=== PATIENT | male | born 1940 | race Caucasian/White ===

== ENCOUNTER 2022-02-15 21:39 | Inpatient (IN) | payer MEDICARE, OTHER ==
[~2022-02-15] VITALS: Ht 157.5 cm; Wt 59.9 kg
[2022-02-15] MEDS ORDERED: levETIRAcetam IV 500 MG in IV DEXTROSE 5% 100 ML IV ONE (22:00)
[2022-02-15] MEDS ORDERED: LORAZEPAM 2 MG/1 ML VIAL IV ONE (22:00)
[2022-02-15 22:18] LABS: HEMATOCRIT 43.9 % (36.7-47.1); MEAN CORPUSCULAR HEMOGLOBIN 30.4 uug (23.8-33.4); MEAN CORPUSCULAR VOLUME 91.6 fL (73.0-96.2); PLATELET COUNT (AUTO) 239 K/uL (152-348)
--- NOTE | 2022-02-15 22:18 | NUR ---
Patient taken to CT via vanna
[2022-02-15] MEDS ORDERED: levETIRAcetam 500 MG/5 ML VIAL IV ONE (22:21)
[2022-02-15] MEDS ORDERED: LORAZEPAM 2 MG/1 ML VIAL ONE (22:22)
[2022-02-15 22:25] LABS: CARBON DIOXIDE 27 mmol/L (21-32); CHLORIDE 100 mmol/L (98-107); CREATININE 1.1 mg/dL (0.6-1.3); GLUCOSE 150 mg/dL (74-106); POTASSIUM 4.5 mmol/L (3.5-5.1); UREA NITROGEN, BLOOD 16 mg/dL (7-18)
[2022-02-15] MEDS ORDERED: IV NORMAL SALINE 1000 ML BAG IV ONE (22:30)
[2022-02-15 22:31] LABS: ALANINE AMINOTRANSFERASE 11 U/L (16-63); ALKALINE PHOSPHATASE 82 U/L (50-136); ASPARTATE AMINOTRANSFERASE 19 U/L (15-37); BILIRUBIN,DIRECT 0.1 mg/dL (0.0-0.2); BILIRUBIN,TOTAL 0.3 mg/dL (0.2-1.0); TOTAL PROTEIN, SERUM 7.9 g/dL (6.4-8.2)
[2022-02-15 22:38] LABS: ETHANOL < 3 MG/DL (0-0)
--- NOTE | 2022-02-16 00:40 | NUR ---
Called [facility] to page Dr. Doll.
[2022-02-16] MEDS ORDERED: LIDOCAINE 2% (GLYDO= UROJET) 10 ML JELLY MM ONE ×2 (00:45)
[2022-02-16] MEDS ORDERED: LEVE500T20 PO (01:18)
[2022-02-16] MEDS ORDERED: ACET-2154 PO (01:18)
[2022-02-16] MEDS ORDERED: PYRI50CA PO (01:18)
[2022-02-16] MEDS ORDERED: MINE105O TP (01:18)
[2022-02-16] MEDS ORDERED: LORA2TAB95 PO (01:18)
[2022-02-16] MEDS ORDERED: TRAZ-182 PO (01:18)
[2022-02-16] MEDS ORDERED: MV-M1TAB18 PO (01:18)
[2022-02-16] MEDS ORDERED: LORA-259 PO (01:18)
[2022-02-16] MEDS ORDERED: PANT40TA49 PO (01:18)
[2022-02-16] MEDS ORDERED: BACI3.5O23 TOP (01:18)
[2022-02-16] MEDS ORDERED: CALC200T42 PO (01:18)
[2022-02-16] MEDS ORDERED: HYDR453.3 TP ×2 (01:18)
[2022-02-16] MEDS ORDERED: MUPI22OI2 TP (01:18)
[2022-02-16] MEDS ORDERED: MAGN400O6 PO (01:18)
[2022-02-16] MEDS ORDERED: QUET25TA PO (01:18)
[2022-02-16] MEDS ORDERED: DIVA-76 PO (01:18)
[2022-02-16] MEDS ORDERED: [UNRECOGNIZED DRUG - CODE] TP (01:18)
[2022-02-16] MEDS ORDERED: MULT-366 PO (01:18)
[2022-02-16] MEDS ORDERED: DOCU100C36 PO (01:18)
[2022-02-16] MEDS ORDERED: PETR18JE3 TP (01:18)
[2022-02-16] MEDS ORDERED: [UNRECOGNIZED DRUG - CODE] TP (01:18)
[2022-02-16] MEDS ORDERED: FLUO15CR TP (01:18)
[2022-02-16] MEDS ORDERED: BISA10SU61 RC (01:18)
[2022-02-16] MEDS ORDERED: DEXT15DR6 EACHEYE (01:18)
[2022-02-16] MEDS ORDERED: TOLN113C2 TP (01:18)
[2022-02-16] MEDS ORDERED: NYST60PO TP (01:18)
[2022-02-16] MEDS ORDERED: GUAI-717 PO (01:18)
[2022-02-16] MEDS ORDERED: MENT3.5O TP (01:18)
[2022-02-16] MEDS ORDERED: [UNRECOGNIZED DRUG - CODE] TP (01:18)
[2022-02-16] MEDS ORDERED: [UNRECOGNIZED DRUG - CODE] TP (01:18)
[2022-02-16] MEDS ORDERED: DIAZ5TAB4 RC (01:18)
[2022-02-16] MEDS ORDERED: FERR325T28 PO (01:18)
[2022-02-16] MEDS ORDERED: LOPE2CAP PO (01:18)
[2022-02-16] MEDS ORDERED: AMLO-212 PO (01:18)
--- NOTE | 2022-02-16 01:35 | NUR ---
Patient incontinent in brief. Large BM.
--- NOTE | 2022-02-16 02:08 | NUR ---
Patient has been admitted by Oskar Forte for TELE bed.
[2022-02-16] MEDS ORDERED: REMEDY ESSENTIAL ZINC PASTE 113 GM TP PRN (02:15)
[2022-02-16] MEDS ORDERED: ONDANSETRON 4 MG/2 ML VIAL IV PRN (02:15)
[2022-02-16 02:52] LABS: ABG BASE EXCESS -1.1 mmol/L; ABG HCO3 22.3 mmol/L; ABG PCO2 33.3 mmHg (35.0-45.0); ABG PH 7.443 (7.350-7.450); ABG PO2 79.3 mmHg (75.0-100.0); ABG SITE LEFT RADIAL; ABG TOTAL HEMOGLOBIN 13.6 G/dL (13.5-18.0); COHb 0.6 % (0.5-1.5); MetHb 0.1 % (0.0-1.5); O2Hb 95.6 % (94.0-97.0); VENT MODE Nasal Cannula
--- NOTE | 2022-02-16 03:24 | NUR ---
Called third floor for TELE bed. Currently no beds avaliable.
--- NOTE | 2022-02-16 05:55 | NUR ---
Spoke to Joi REED at [facility]. Per BRIANNA, patient's baseline is nonverbal but will yell out when needed a brief change, wheelchair bound, and is on a full liquid/pureed diet.
--- NOTE | 2022-02-16 06:54 | NUR ---
Report given to Joselito HOUSTON
[2022-02-16] MEDS ORDERED: levETIRAcetam 500 MG/5 ML VIAL IV ONE ×2 (09:28→21:44)
[2022-02-16] MEDS: PANTOPRAZOLE SODIUM 40 MG VIAL IV SCH (09:45)
[2022-02-16] MEDS: levETIRAcetam IV 1,000 MG in IV DEXTROSE 5% 100 ML IV SCH ×3 (09:45→22:33)
[2022-02-16] MEDS ORDERED: BISACODYL 10 MG SUPP.RECT RC PRN (10:00)
[2022-02-16] MEDS: IV NS 1000 ML 1,000 ML IV PRN ×2 (11:11→21:01)
[2022-02-16] MEDS ORDERED: LORAZEPAM 2 MG/1 ML VIAL ONE (15:06)
[2022-02-16] MEDS: LORAZEPAM 2 MG/1 ML VIAL IV PRN (15:32)
[2022-02-16 15:38] LABS: *OCCULT BLOOD STOOL POSITIVE (NEGATIVE)
[2022-02-16] MEDS ORDERED: CALCIUM CITRATE 950MG TAB PO SCH ×2 (17:00→20:05)
[2022-02-16] MEDS: DOCUSATE SODIUM 100 MG CAPSULE PO SCH (17:00)
[2022-02-16] MEDS: DIVALPROEX 250 MG TABLET.DR PO SCH (17:00)
[2022-02-16] MEDS: QUETIAPINE FUMARATE 25 MG TABLET PO SCH (17:00)
[2022-02-16] MEDS: TRAZODONE 50 MG TABLET PO SCH (17:27)
--- NOTE | 2022-02-16 17:30 | NUR ---
PT IS SLEEPING , TOO SEDATED AND CAN NOT TAKE PO MEDICATION AT HIS TIME. DR CUEVAS WAS NOTIFIED. CONTINU TO MONITOR THE PT.
--- NOTE | 2022-02-16 19:19 | NUR ---
REPORT GIVEN TO J2EE PROGRAMMER ROSEMARIE WILDER.
--- NOTE | 2022-02-16 19:26 | NUR ---
Report given to Celina HOUSTONconverter operator.
--- NOTE | 2022-02-16 20:10 | NUR ---
PEDRO LUIS MONTANO FROM ER A/A MAKING NOISES, NOT ABLE TO FOLLOW ANY COMMANDS
[2022-02-16 21:09] VITALS: BP 176/86
[2022-02-17 00:30] VITALS: BP 120/59
[2022-02-17 04:12] VITALS: BP 149/58
--- NOTE | 2022-02-17 07:30 | NUR ---
REPORT GIVEN TO ROSEMARIE HOMER
--- NOTE | 2022-02-17 08:00 | NUR ---
Seizure precaution implemented. NPO status implemented. PT nonverbal. Call light is within reach.
[2022-02-17 08:05] LABS: HEMATOCRIT 36.5 % (36.7-47.1); MEAN CORPUSCULAR HEMOGLOBIN 30.7 uug (23.8-33.4); PLATELET COUNT (AUTO) 156 K/uL (152-348)
[2022-02-17 08:17] LABS: CREATININE 0.7 mg/dL (0.6-1.3); MAGNESIUM 2.4 mg/dL (1.8-2.4); PHOSPHOROUS 3.2 mg/dL (2.5-4.9)
[2022-02-17 08:18] LABS: THYROID STIMULATING HORMONE 7.677 mIU/mL (0.358-3.740)
[2022-02-17 08:39] LABS: NEUTROPHILS % (MANUAL) 0 % (42-75)
[2022-02-17] MEDS: levETIRAcetam IV 1,000 MG in IV DEXTROSE 5% 100 ML IV SCH ×2 (10:08→21:56)
[2022-02-17] MEDS: PANTOPRAZOLE SODIUM 40 MG VIAL IV SCH (10:09)
[2022-02-17] MEDS: QUETIAPINE FUMARATE 25 MG TABLET PO SCH ×2 (10:09→17:07)
[2022-02-17] MEDS: DOCUSATE SODIUM 100 MG CAPSULE PO SCH ×2 (10:09→17:06)
[2022-02-17] MEDS: AMLODIPINE 5 MG TABLET PO SCH (10:10)
[2022-02-17] MEDS: DIVALPROEX 250 MG TABLET.DR PO SCH ×2 (10:10→17:06)
[2022-02-17 11:35] VITALS: BP 140/52
[2022-02-17] MEDS: CALCIUM CITRATE 950MG TAB PO SCH ×2 (13:03→21:00)
[2022-02-17] MEDS: TRAZODONE 50 MG TABLET PO SCH (17:07)
[2022-02-17] MEDS: IV NS 1000 ML 1,000 ML IV PRN (17:14)
[2022-02-17 17:54] VITALS: BP 149/67
--- NOTE | 2022-02-17 18:00 | NUR ---
Pt is in no acute distress. Call light is within reach. No seizure noted this shift. EEG DOne
[2022-02-17 20:31] VITALS: BP 120/73
[2022-02-18 04:28] VITALS: BP 141/82
[2022-02-18] MEDS: levETIRAcetam IV 1,000 MG in IV DEXTROSE 5% 100 ML IV SCH ×2 (09:37→22:08)
[2022-02-18] MEDS: DIVALPROEX 250 MG TABLET.DR PO SCH ×2 (10:01→18:23)
[2022-02-18] MEDS: CALCIUM CITRATE 950MG TAB PO SCH ×2 (10:02→18:23)
[2022-02-18] MEDS: AMLODIPINE 5 MG TABLET PO SCH (10:02)
[2022-02-18] MEDS: QUETIAPINE FUMARATE 25 MG TABLET PO SCH ×2 (10:02→18:23)
[2022-02-18] MEDS: DOCUSATE SODIUM 100 MG CAPSULE PO SCH ×2 (10:09→18:23)
[2022-02-18] MEDS: PANTOPRAZOLE SODIUM 40 MG VIAL IV SCH (10:15)
[2022-02-18 11:40] VITALS: BP 145/80
[2022-02-18] MEDS ORDERED: CHOL-35 PO (12:51)
[2022-02-18] MEDS ORDERED: SODI1TAB3 PO (12:51)
--- NOTE | 2022-02-18 14:40 | NUR ---
WOUND CARE CONSULT: RECEIVED CONSULT FOR HIGH RISK. PT NOTED TO HAVE LEFT BELOW KNEE AMPUTATION STUMP AND CONTRACTED RT LOWER EXTREMITY. PT YELLS OUT ALMOST CONSTANTLY. [place] CATH NOTED. RECOMMENDATIONS MADE FOR SKIN PROTECTION. DISCUSSED WITH NURSING STAFF. IN AGREEMENT WITH PLAN OF CARE.
[2022-02-18 14:43] LABS: HEMATOCRIT 36.4 % (36.7-47.1); MEAN CORPUSCULAR VOLUME 90.4 fL (73.0-96.2); PLATELET COUNT (AUTO) 172 K/uL (152-348)
[2022-02-18 16:22] VITALS: BP 132/61
[2022-02-18] MEDS: TRAZODONE 50 MG TABLET PO SCH (18:23)
--- NOTE | 2022-02-18 20:12 | NUR ---
RECEIVED REPORT FROM ROSEMARIE PATTERSON NOC SHIFT. PATIENT IS ALERT AND & ORIENTED X1, APHASIC, AND UNABLE TO COMPREHEND. [place] CATHETER PATENT AND DRAINING. HAD 1 SMEAR BOWEL MOVEMENT. NO SEIZURES DURING THE SHIFT. SEIZURE PRECAUTIONS OBSERVED INCLUDING BUT NOT LIMITED TO SIDE RAILS PADDING. PATIENT PASSED SWALLOW EVALUATION WITH SPEECH THERAPY. PATIENT STARTED ON PUREE DIET. NO SIGNS AND SYMPTOMS OF ASPIRATION. PATIENT TOLERATES DIET AND PO MEDICATIONS WELL. AT 18:30PM, PATIENT'S IV NOTED TO BE INFILTRATED. RN STOPPED IV FLUIDS. NO ACUTE DISTRESSED NOTED. FALL PRECAUTIONS OBSERVED, BED IN LOWEST POSITION AND BED ALARM ACTIVATED. ALL NEEDS MET AT THIS TIME. ENDORSED CARE TO ROSEMARIE RUSSELL, FOR CONTINUATION OF CARE.
[2022-02-18 20:21] VITALS: BP 102/48
[2022-02-19] MEDS: LORAZEPAM 2 MG/1 ML VIAL IV PRN ×2 (01:16→10:12)
[2022-02-19] MEDS: IV NS 1000 ML 1,000 ML IV PRN ×2 (01:31→19:14)
[2022-02-19 04:40] VITALS: BP 133/58
[2022-02-19] MEDS: LEVOTHYROXINE SODIUM 25 MCG TABLET PO SCH (06:16)
[2022-02-19 08:00] VITALS: BP 145/83
[2022-02-19 08:28] LABS: HEMATOCRIT 37.4 % (36.7-47.1); MEAN CORPUSCULAR HEMOGLOBIN 30.2 uug (23.8-33.4); MEAN CORPUSCULAR VOLUME 90.8 fL (73.0-96.2); PLATELET COUNT (AUTO) 187 K/uL (152-348)
[2022-02-19 08:33] LABS: CREATININE 0.8 mg/dL (0.6-1.3); POTASSIUM 3.7 mmol/L (3.5-5.1)
[2022-02-19] MEDS: DIVALPROEX 250 MG TABLET.DR PO SCH ×2 (10:12→17:28)
[2022-02-19] MEDS: PANTOPRAZOLE SODIUM 40 MG VIAL IV SCH (10:12)
[2022-02-19] MEDS: AMLODIPINE 5 MG TABLET PO SCH (10:13)
[2022-02-19] MEDS: DOCUSATE SODIUM 100 MG CAPSULE PO SCH ×2 (10:13→17:28)
[2022-02-19] MEDS: QUETIAPINE FUMARATE 25 MG TABLET PO SCH ×2 (10:13→17:28)
[2022-02-19] MEDS: CALCIUM CITRATE 950MG TAB PO SCH ×2 (10:15→17:28)
[2022-02-19] MEDS: levETIRAcetam IV 1,000 MG in IV DEXTROSE 5% 100 ML IV SCH ×2 (10:15→21:26)
[2022-02-19 11:18] LABS: LYMPHOCYTES % (MANUAL) 26 % (20-40); MONOCYTES % (MANUAL) 11 % (2-10); NEUTROPHILS % (MANUAL) 63 % (42-75)
[2022-02-19 11:19] VITALS: BP 139/62
[2022-02-19 16:00] VITALS: BP 115/58
[2022-02-19] MEDS: TRAZODONE 50 MG TABLET PO SCH (17:28)
--- NOTE | 2022-02-19 19:35 | NUR ---
Received patient laying in bed comfortably. AAOx1. Aphasic and is alert in response to their name. No signs of distress or pain noted at this time. Is on 2L NC, saturating 95%. Chaudhary catheter is clean and intact. IVF are infusing adequately on left wrist. Seizure precautions are enforced. Neuro clearance to be done before decision of patient being discharged. Plan of care continued.
[2022-02-19 20:32] VITALS: BP 126/64
[2022-02-20] MEDS: LEVOTHYROXINE SODIUM 25 MCG TABLET PO SCH (06:15)
[2022-02-20] MEDS ORDERED: PANTOPRAZOLE SODIUM 40 MG TABLET.DR PO SCH (07:00)
[2022-02-20] MEDS ORDERED: LORAZEPAM 2 MG/1 ML VIAL IV PRN (08:35)
[2022-02-20 10:30] VITALS: BP 147/69
[2022-02-20] MEDS: DIVALPROEX 250 MG TABLET.DR PO SCH (10:30)
[2022-02-20] MEDS: CALCIUM CITRATE 950MG TAB PO SCH (10:31)
[2022-02-20] MEDS: AMLODIPINE 5 MG TABLET PO SCH (10:31)
[2022-02-20] MEDS: QUETIAPINE FUMARATE 25 MG TABLET PO SCH (10:32)
[2022-02-20] MEDS: DOCUSATE SODIUM 100 MG CAPSULE PO SCH (10:32)
[2022-02-20] MEDS: levETIRAcetam IV 1,000 MG in IV DEXTROSE 5% 100 ML IV SCH (10:32)
[2022-02-20 12:00] VITALS: BP 139/77
[2022-02-20] MEDS ORDERED: DIVA-78 PO (12:15)
--- NOTE | 2022-02-20 15:49 | NUR ---
RECEIVED REPORT FROM KAREN VEGA SHIFT RN. PATIENT IS ALERT AND ORIENTED X1, AND NONVERBAL. PATIENT TOLERATES PO MEDICATIONS AND DIET WELL. NO SIGNS AND SYMPTOMS OF ASPIRATION. SEIZURE PRECAUTIONS IN PLACE. NO SEIZURES NOTED DURING SHIFT. FALL PRECAUTIONS IN PLACE. PATIENT [place] CATHETER REMOVED AT 15:20PM. IV REMOVED. CATHETER TIP INTACT. PATIENT ATE 75% OF MEAL. PATIENT DISCHARGED BACK TO [facility]. RN GAVE REPORT TO QUENTIN. ALL QUESTIONED ANSWERED. RN VERIFIED PATIENT BELONGINGS WITH ANOTHER RN. BOTH RN SIGNED BELONGINGS. DISCHARGE DOCUMENTATION SIGNED. RN GAVE REPORT TO EMT, [facility]. ALL QUESTIONS ANSWERED. PATIENT LEFT IN STABLE CONDITION FROM UNIT.
--- NOTE | 2022-02-21 06:33 | NUR ---
Levetiracetam IV 500mg in IV Dextrose 5% 100ml completed 02/15/22. 23:00
== END 2022-02-20 16:00 | DRG 101 ==
LOC: ER 21:39 → TELE3 02-16 19:56 → MEDSURG3 02-17 08:55 → MED 02-20 00:38
PROVIDERS: ADMIT Internal Medicine; ATTEND Nurse Practitioner Acute Care
DX: G40.901 Epilepsy, unspecified, not intractable, with status epilepticus (principal); E78.5 Hyperlipidemia, unspecified; I25.10 Atherosclerotic heart disease of native coronary artery without angina pectoris; Z89.512 Acquired absence of left leg below knee; Z79.899 Other long term (current) drug therapy; N40.0 Benign prostatic hyperplasia without lower urinary tract symptoms; Z20.822 Contact with and (suspected) exposure to COVID-19
CPT/HCPCS: 36415; 36600; 70030-TC; 70450; 71045; 80164; 80299; 83735; 84100; 84443; 85025; 93005; 93307; 95819; A4663; C9113; G0378; G0480; J1953; J2060; J3490; J7040